=== PATIENT | male | born 1965 | race Caucasian/White ===

== ENCOUNTER 2016-06-04 11:01 | Emergency (ER) | payer SELFPAY ==
[~2016-06-04] VITALS: Ht 172.7 cm; Wt 63.0 kg
[2016-06-04 11:03] VITALS: BP 119/72
== END 2016-06-04 12:35 | disposition left against medical advice (07) ==
LOC: ER 12:20
DX: M79.671 Pain in right foot (principal); M79.672 Pain in left foot; F17.200 Nicotine dependence, unspecified, uncomplicated; Z86.59 Personal history of other mental and behavioral disorders